=== PATIENT | male | born 1960 | race American Indian/Alaskan Native ===

== ENCOUNTER 2017-11-27 08:38 | Emergency (ER) | payer MEDICARE, OTHER ==
[~2017-11-27] VITALS: Ht 177.8 cm; Wt 63.5 kg
[~2017-11-27 08:38] MED LIST: AMIT25 PO; AMLO5 PO; ANTIBIOTIC FOR SINUS; BENZ2 PO; BUPR150ER; BUPR150T2; BUPR150T2 PO; BUPR75; BUPR75 PO; CHLO10 PO; CIME400; CIME400 PO; CLON.1; CLON.1 PO; CLON.3 PO; CLON.5 PO; CYCL10; CYCL10 PO; Clonazepam0.5 MG PO; ESOM20 PO; HALO5 PO; HYDACE10B; HYDACE5 PO; HYDPAM25 PO; HYDPAM50 PO; Hydrocodone-Ap1 EA23 PO; IBUP600 PO; LISHYD1012 PO; LISI20 PO; LORA.5 PO; LORA1 PO; Lisinopril2.5 MG; MEDICAL MARIJAUNA; MELO7.5 PO; METO50 PO; METPRE4DP PO; MIRT15; MIRT30; MIRT30 PO; OLAN5 PO; OXYACE5T PO; OXYACE7.5T; OXYACE7.5T PO; PROM25 PO; RANI150 PO; RESPERIDOL; RISP1; RISP3; RISP3 PO; RISPERDOL; Risperidone3 MG PO; SULTRIDS PO; TRAM50 PO; TRAZ100; TRAZ50 PO; WELLBUTRIN; ZIPR20; ZIPR20 PO; [UNRECOGNIZED DRUG - REMARK]
[2017-11-27] MEDS ORDERED: RISP3 PO (09:59)
== END 2017-11-27 10:13 | disposition home or self-care (01) ==
LOC: ER 08:38
DX: Z76.89 Persons encountering health services in other specified circumstances (principal); Z79.899 Other long term (current) drug therapy; I10 Essential (primary) hypertension; J44.9 Chronic obstructive pulmonary disease, unspecified; F32.9 Major depressive disorder, single episode, unspecified; F20.9 Schizophrenia, unspecified; F17.210 Nicotine dependence, cigarettes, uncomplicated
CPT/HCPCS: 99281

== ENCOUNTER 2018-01-01 08:15 | Emergency (ER) | payer MEDICARE, OTHER ==
[~2018-01-01] VITALS: Ht 177.8 cm; Wt 65.8 kg
[2018-01-01] MEDS ORDERED: RISP3 PO (08:33)
== END 2018-01-01 08:38 | disposition home or self-care (01) ==
LOC: ER 08:15
DX: Z76.0 Encounter for issue of repeat prescription (principal); F20.9 Schizophrenia, unspecified; I10 Essential (primary) hypertension; M54.9 Dorsalgia, unspecified; G89.29 Other chronic pain; F17.210 Nicotine dependence, cigarettes, uncomplicated
CPT/HCPCS: 99281

== ENCOUNTER 2020-11-20 12:33 | Emergency (ER) | payer MEDICARE, OTHER ==
[~2020-11-20] VITALS: Ht 177.8 cm; Wt 63.5 kg
[2020-11-20] MEDS ORDERED: RISPERIDONE3 M2 PO ×2 (15:52→15:56)
== END 2020-11-20 16:15 | disposition home or self-care (01) ==
LOC: ER 12:33
DX: Z76.0 Encounter for issue of repeat prescription (principal); F20.9 Schizophrenia, unspecified; I10 Essential (primary) hypertension; F17.200 Nicotine dependence, unspecified, uncomplicated; Z79.899 Other long term (current) drug therapy

== ENCOUNTER 2020-12-02 08:20 | Emergency (ER) | payer MEDICARE, OTHER ==
[~2020-12-02] VITALS: Ht 177.8 cm; Wt 61.2 kg
[~2020-12-02 08:20] MED LIST changes: +RISPERIDONE3 M2 PO
[2020-12-02] MEDS ORDERED: RISPERIDONE3 MG PO (08:40)
[2020-12-02] MEDS ORDERED: MIRT15ST PO (12:10)
== END 2020-12-02 12:34 | disposition home or self-care (01) ==
LOC: ER 08:20
DX: F20.9 Schizophrenia, unspecified (principal); I10 Essential (primary) hypertension; F17.210 Nicotine dependence, cigarettes, uncomplicated; Z76.0 Encounter for issue of repeat prescription; Z79.899 Other long term (current) drug therapy
CPT/HCPCS: 99284; Q3014

== ENCOUNTER 2022-07-19 10:06 | Observation (INO) | payer MEDICARE, OTHER ==
[~2022-07-19] VITALS: Ht 177.8 cm; Wt 56.7 kg
[~2022-07-19 10:06] MED LIST changes: +MIRT15ST PO; +RISPERIDONE3 MG PO
[2022-07-19] MEDS ORDERED: PALI3TAB (11:11)
[2022-07-19 11:22] LABS: Source, Urine Clean Catch
[2022-07-19 11:22] LABS: BASOPHILS ABSOLUTE AUTO 0.03 K/mm3 (0.00-0.23); BASOPHILS PERCENT AUTO 0 % (0-2); EOSINOPHILS ABSOLUTE AUTO 0.02 K/mm3 (0.00-0.68); EOSINOPHILS PERCENT AUTO 0 % (0-6); Hematocrit 42.5 % (37.0-53.0); Hemoglobin 14.6 g/dL (13.5-17.5); IMMATURE GRAN ABSOLUTE AUTO 0.02 K/mm3 (0.00-0.10); IMMATURE GRAN PERCENT AUTO 0 % (0-1); LYMPHOCYTES ABSOLUTE AUTO 1.49 K/mm3 (0.84-5.20); LYMPHOCYTES PERCENT AUTO 15 % (21-46); MONOCYTES ABSOLUTE AUTO 0.55 K/mm3 (0.16-1.47); MONOCYTES PERCENT AUTO 6 % (4-13); Mean Corpuscular HGB 31.9 pg (26.0-34.0); Mean Corpuscular HGB Conc 34.4 g/dL (31.5-36.5); Mean Corpuscular Volume 93 fL (80-100); Mean Platelet Volume 11.1 fL (9.1-12.4); NEUTROPHILS PERCENT AUTO 79 % (41-73); Platelet Count 152 K/mm3 (150-400); RDW Standard Deviation 44.5 fL (35.1-46.3); Red Blood Cell Count 4.58 M/mm3 (4.30-5.90); White Blood Cell Count 9.91 K/mm3 (4.00-11.30)
[2022-07-19 11:29] LABS: Appearance, Urine Clear (Clear); Bilirubin, Urine Neg (Neg); Blood, Urine Neg (Neg); Color, Urine Yellow (P-Yellow); Glucose Qualitative, Urine Neg (Neg); Ketones, Urine Neg (Neg); Leukocyte Esterase, Urine 1+ (Neg); Nitrite, Urine Neg (Neg); Protein, Urine Neg (Neg); Urobilinogen, Urine NORM (Normal)
[2022-07-19 11:39] LABS: Albumin, Blood 3.7 g/dL (3.4-5.0); Albumin/Globulin Ratio 1.1 (0.8-1.8); Bilirubin, Total 0.3 mg/dL (0.1-1.0); Calcium, Blood 9.4 mg/dL (8.5-10.1); Creatinine, Blood 0.63 mg/dL (0.60-1.20); Globulin, Blood 3.4 g/dL (2.2-4.0); Total Protein, Blood 7.1 g/dL (6.4-8.2)
[2022-07-19 11:46] LABS: Ethanol (Alcohol), Blood, Med <3 mg/dL; Salicylate 5.2 mg/dL (2.8-20.0)
[2022-07-19 11:59] LABS: Acetaminophen, Random <2.0 ug/mL (10.0-30.0)
[2022-07-19 12:18] LABS: White Blood Cells, Urine 0-2 /hpf (0-5)
[2022-07-19 12:20] LABS: U Amphetamine Screen Not Detected; U Barbituate Screen Not Detected; U Benzodiazapine Screen Not Detected; U Buprenorphine Screen Not Detected; U Cannabinoids Screen Not Detected; U Cocaine Screen Not Detected; U Methadone Screen Not Detected; U Methamphetamine Screen Not Detected; U Opiates Screen Not Detected; U Oxycodone Screen Not Detected; U Phencyclidine Screen Not Detected; U Propoxyphene Screen Not Detected
[2022-07-19 12:21] LABS: Bacteria Not Seen /hpf
[2022-07-19 12:23] LABS: Squamous Epithelial Cells Rare /hpf (Few)
[2022-07-19 12:26] LABS: Influenza A, PCR NEGATIVE (NEGATIVE); Influenza B, PCR NEGATIVE (NEGATIVE); Resp Syncytial Virus, PCR NEGATIVE (NEGATIVE); SARS-Cov-2 (COVID-19) PCR, MMC NEGATIVE (NEGATIVE)
[2022-07-19 12:30] LABS: Red Blood Cells, Urine 0-2 /hpf (0-2)
[2022-07-20] MEDS ORDERED: QUET100 PO (10:44)
== END 2022-07-20 12:04 | disposition home or self-care (01) ==
LOC: ER 10:06 → EOR 10:07
PROVIDERS: ADMIT Emergency Medicine
DX: F20.0 Paranoid schizophrenia (principal); F17.210 Nicotine dependence, cigarettes, uncomplicated; Z20.822 Contact with and (suspected) exposure to COVID-19
CPT/HCPCS: 0241U; 36415; 80053; 81001; 85025; 87086; 99285; A9270; G0378; G0480; Q3014